=== PATIENT | male | born 1955 | race Caucasian/White ===

== ENCOUNTER 2022-06-13 09:05 | Observation (INO) ==
[2022-06-13] MEDS ORDERED: Iopamidol - 370 500 ML MLS IVP ONE (09:16)
[2022-06-13 09:31] LABS: Hemoglobin 14.1 g/dL (12.9-16.9); Mean Corpuscular HGB Conc 32.8 g/dL (31.6-35.5); Mean Corpuscular Hemoglobin 29.1 pg (28.0-33.3); Mean Corpuscular Volume 88.8 fL (83.0-100.0); Platelet Count 226 K/mcL (140-400); Red Blood Count 4.84 M/mcL (4.19-5.50); Red Cell Distribution Width 12.9 % (11.5-14.5); White Blood Count 6.4 K/mcL (4.3-11.1)
[2022-06-13 09:38] LABS: Prothrombin Time 11.6 Seconds (9.4-12.1)
[2022-06-13 09:41] LABS: Activated Partial Thrombo Time 31.5 Seconds (26.0-36.0)
[2022-06-13 09:49] LABS: BUN/Creatinine Ratio 17 (6-26); Blood Urea Nitrogen 17 mg/dL (8-23); Calcium 9.4 mg/dL (8.6-10.3); Carbon Dioxide 32 mEq/L (23-29); Chloride 106 mEq/L (98-107); Creatine Kinase 83 Units/L (30-223); Glucose 61 mg/dL (70-105); Osmolality,Calculated 293 (280-300); Potassium 3.6 mEq/L (3.5-5.1); Sodium 142 mEq/L (136-145); eGFR For African Americans > 60 (> 60); eGFR For Non-African Americans > 60 (> 60)
[2022-06-13] MEDS ORDERED: Aspirin 81 MG TAB.CHEW PO STA (09:54)
[2022-06-13 10:26] LABS: Troponin I < 0.03 ng/mL (< 0.04)
[2022-06-13 10:49] LABS: Bilirubin,Urine Negative (Negative); Blood,Urine Negative (Negative); Clarity,Urine Clear (Clear); Color,Urine Light-Yellow (Yellow); Glucose,Urine (UA) Normal (Normal); Ketones,Urine Negative (Negative); Leukocyte Esterase,Urine Negative (Negative); Nitrite,Urine Negative (Negative); Protein,Urine Trace mg/dL (Neg-Trace); Specific Gravity,Urine > 1.030 (1.010-1.025); Urobilinogen,Urine Normal (Normal)
[2022-06-13] MEDS ORDERED: Naloxone 0.4 MG/ML INJ IVP PRN (11:00)
[2022-06-13] MEDS ORDERED: Perflutren Lipid Microsphere 1.3 ML in 0.9 % Sodium Chloride 8.7 ML IVP PRN (15:53)
[2022-06-14 03:43] LABS: Basophils % 0.7 %; Eosinophils # 0.1 K/mcL (0.0-0.6); Eosinophils % 2.1 %; Hemoglobin 13.6 g/dL (12.9-16.9); Immature Granulocytes % 0.3 % (0-4); Lymphocytes # 1.8 K/mcL (0.6-4.6); Lymphocytes % 28.6 %; Mean Corpuscular HGB Conc 33.2 g/dL (31.6-35.5); Mean Corpuscular Hemoglobin 29.2 pg (28.0-33.3); Monocytes # 0.5 K/mcL (0.0-1.3); Monocytes % 8.6 %; Neutrophils # 3.7 K/mcL (1.6-8.9); Platelet Count 217 K/mcL (140-400); Red Blood Count 4.66 M/mcL (4.19-5.50); Red Cell Distribution Width 12.8 % (11.5-14.5); Segmented Neutrophils % 59.7 %; White Blood Count 6.2 K/mcL (4.3-11.1)
[2022-06-14 03:53] LABS: INR 1.1; Prothrombin Time 12.3 Seconds (9.4-12.1)
[2022-06-14 03:59] LABS: Alanine Aminotransferase 12 Units/L (7-52); Albumin 3.8 g/dL (3.5-5.7); Albumin/Globulin Ratio 1.9 (1.1-2.2); Alkaline Phosphatase 50 Units/L (34-104); Aspartate Amino Transferase 11 Units/L (13-39); BUN/Creatinine Ratio 19 (6-26); Bilirubin,Total 0.4 mg/dL (0.3-1.0); Blood Urea Nitrogen 18 mg/dL (8-23); Carbon Dioxide 29 mEq/L (23-29); Chloride 106 mEq/L (98-107); Chol/HDL Ratio 2.9 (0-4.9); Cholesterol 169 mg/dL (< 200); Glucose 88 mg/dL (70-105); HDL Cholesterol 59 mg/dL (40-59); LDL Cholesterol,Calculated 96 mg/dL (< 100); Osmolality,Calculated 293 (280-300); Sodium 141 mEq/L (136-145); Total Protein 5.8 g/dL (6.4-8.9); Triglycerides 70 mg/dL (< 150); Troponin I < 0.03 ng/mL (< 0.04); eGFR For African Americans > 60 (> 60); eGFR For Non-African Americans > 60 (> 60)
[2022-06-14 04:00] LABS: Estimated Average Glucose 100 mg/dl; Hemoglobin A1C 5.1 %
[2022-06-14] MEDS: Aspirin Enteric Coated 81 MG Tablet PO SCH (09:00)
[2022-06-15] MEDS ORDERED: *HR* Enoxaparin 40 MG/0.4 ML SYRINGE SQ SCH (06:00)
[2022-06-15] MEDS: Aspirin Enteric Coated 81 MG Tablet PO SCH (09:57)
[2022-06-15 10:49] VITALS: BP 134/79; PULSE 61; TEMP 97.7; O2SAT 99
== END 2022-06-15 13:28 | disposition home or self-care (01) ==
LOC: 3BNU 09:05 → EMEROOARM 09:05 → SUATTDRO 13:29 → 3BNU 14:04
PROVIDERS: ADMIT Family Medicine; ATTEND Registered Nurse